=== PATIENT | male | born 1970 | race Caucasian/White ===

== ENCOUNTER 2019-05-15 03:56 | Emergency (ER) | payer OTHER, BC, SELFPAY ==
[2019-05-15 03:57] VITALS: RESP 16
[2019-05-15 03:58] VITALS: BP 166/123; PULSE 76; RESP 16; TEMP 36.9; O2SAT 97; BMI 32.8
--- NOTE | 2019-05-15 04:03 | RAD_ITS ---
STUDY: X-RAY - RIGHT SHOULDER REASON FOR EXAM: Male, 49 years old. Right shoulder pain TECHNIQUE: For view(s) of the shoulder. COMPARISON: None. FINDINGS: Glenohumeral joint is in normal alignment no significant degenerative change. Acromioclavicular joint is in normal alignment with moderate degenerative change. Normal acromion. Normal humeral head and visualized proximal humerus. Normal clavicle and scapula The soft tissue structures are unremarkable. Normal visualized pulmonary apex. RAD/Shoulder min 2 Views IMPRESSION: Moderate right acromioclavicular joint osteoarthritic change. Electronically Signed: Rick Harp MD at 5:02 EDT Tel , Service support ,
--- NOTE | 2019-05-15 04:55 | ED.DCSUM_ITS ---
- ER Visit Summary Date of Service: 05/15/19 Chief Complaint: Right shoulder pain History of Present Illness: The patient is a 49 M with right shoulder pain started today while lifting at work. He felt a pop. His pain is worse with use and movement. He is right-hand dominant. No associated symptoms like weakness or numbness. Physical Examination: Afebrile and vital signs unremarkable. Alert and oriented. Patient is holding his right shoulder abducted to his body with his forearm across his trunk. He has pain on palpation to the right shoulder. No obvious deformities. Clavicle normal. Neurovascular intact distally. Pain with range of motion, abduction. Skin normal. Test Results: X-rays unremarkable. Emergency Department Course and Treatment: X-rays performed. Patient treated with Motrin. Sling applied. Workmen's Compensation paperwork completed. Patient was given work precautions. Follow-up with corporate care. Rest, ice, Motrin, [place]. Treatment Plan: As above Disposition: Discharge Impression: 1. Right shoulder muscle strain This note was generated with [employer] dictation software. It may contain incorrect words, spelling, and punctuation that were not noted in review of the chart prior to signing ED Disposition - Plan for ED Patient: Referrals: Care Physician,No Primary [Primary Care Provider] -
--- NOTE | 2019-05-15 04:58 | ED.DEP ---
ED Disposition - Plan for ED Patient: Instructions: Rotator Cuff Tear Prescriptions: Ibuprofen [Motrin] 800 mg PO TID PRN PRN #20 tab PRN Reason: Pain Prescription Printed Hydrocodone Bitart/Apap 5-325 [[place] 5MG-325MG] 1 tab PO Q6H PRN PRN 3 Days #12 tab PRN Reason: Pain Prescription Printed Referrals: Corporate[facility]Care [GROUP OF PHYSICIANS] -
[2019-05-15] MEDS: Ibuprofen 400 MG Tablet 800 MG PO (05:00)
[2019-05-15 05:09] VITALS: RESP 16
== END 2019-05-15 05:10 | disposition home or self-care (01) ==
PROVIDERS: Emergency Provider Emergency Medicine
DX: S46.911A Strain of unspecified muscle, fascia and tendon at shoulder and upper arm level, right arm, initial encounter (principal); Z72.0 Tobacco use; X50.0XXA Overexertion from strenuous movement or load, initial encounter; Y93.89 Activity, other specified; Y92.89 Other specified places as the place of occurrence of the external cause; Y99.0 Civilian activity done for income or pay
CPT/HCPCS: 73030; 99283

== ENCOUNTER → 2019-06-02 | Outpatient (CLI) | payer OTHER, SELFPAY ==
[2019-05-23 08:09] VITALS: BMI 32.8
--- NOTE | 2019-06-02 07:45 | MRI_ITS ---
HISTORY:decreased rom after pulling injury MRI EXAMINATION OF THERight SHOULDER COMPARISON: Radiographs of the right shoulder obtained on May 15, 2019 TECHNIQUE: Coronal fat-suppressed T2 fat-suppressed proton-density sagittal T2 and axial fat-suppressed proton density and T2 # of images including paperwork:138 FINDINGS: Bones: No acute fracture or significant marrow edema. Subcortical cysts are seen the greater tuberosity of the humeral head. Rotator cuff: The supraspinatus tendon is intact without evidence of a tendon tear. The infraspinatus and teres minor tendons are intact. Subscapularis tendon is intact Coracoacromial arch and Acromioclavicular joint: The acromion demonstrates Bigliani Type 1 morphology. The acromiohumeral distance is maintained. There is mild acromial clavicular arthropathy. The coracoacromial ligament is intact Trace amount of fluid within the subacromial subdeltoid bursa. There is slight lateral downsloping of the acromion Biceps tendon: The extraarticular tendon split-thickness tear of the bicipital tendon within the groove. The intra-articular tendon is intact there is fluid surrounding the extra articular tendon. There is a loose body within the bicipital tendon sheath that measures approximately 3.3 mm Glenohumeral joint and labrum: The anterior and posterior bands of the inferior glenohumeral ligament are intact. There is a small joint effusion with fluid extending into the subacromial subdeltoid bursa. No evidence of a labral tear. The articular cartilage is intact. CONCLUSION: Prominent amount of fluid surrounding the extra articular [place]. There is a short segment split thickness tear of the bicipital tendon long head. The interarticular tendon is intact No evidence of a labral tear Small joint effusion No evidence of rotator cuff tear Slight lateral downsloping of the acromion however the acromiohumeral distance is maintained . at 0130 Reported and signed by: Chhaya Youngblood DO Electronically Signed: Chhaya Youngblood DO at 1:29 EDT Tel , Service support , MRI/Upper Ext Joint Only(Routine)
== END | disposition home or self-care (01) ==
LOC: MRI 07:44
PROVIDERS: Referring Provider Physician Assistant; Visit Provider Physician Assistant
DX: S46.911A Strain of unspecified muscle, fascia and tendon at shoulder and upper arm level, right arm, initial encounter (principal)
CPT/HCPCS: 73221